=== PATIENT | female | born 1990 | race Caucasian/White ===

== ENCOUNTER 2017-07-27 16:33 | Day surgery (SDC) | payer OTHER ==
[2017-07-27 17:33] VITALS: BMI 29.0
--- NOTE | 2017-07-27 17:49 | PDOC.LDHP ---
Labor and Delivery H&P HPI: 27 yo [id number] at 39 weeks 5 days here for contractions. Patient of Dr morton who checked her at last visit and was 2 cm. No ROM, no VB, no HAs reported. PATIENT HAS FULL H&P HANDWRITTEN IN CHART Review of systems: complete ROS completed and as per HPI Current gestational age (weeks): 39 (5 days) Due date: 07/29/17 Grav: 2 Para: 0 (SAB1 with no D&C) Abnormal US findings: No Current medications: pre-issac vitamins, other (topical icy-hot) Allergies/Adverse Reactions: Allergies Allergy/AdvReac Type Severity Reaction Status Date / Time adhesive Allergy Verified 07/27/17 17:19 Social history: none - Physical Exam Vital signs reviewed and normal: yes General: NAD Heart: RRR Lungs: CTAB Abdomen: gravid (EFW 6-7#) FHT: category 1 (some early decels) Hedley contractions every: very 2 minutes - Vaginal Exam cm dilated: 2 (BOWI) Effacement: 50% Station: -2 - Assessment Latent labor at term. Desires minimal intervention. Has scheduled induction with Quan, but prefers to enter labor spontaneously. Declines pain meds at this time. GBS neg - Plan Plan: observation in L&D (Recheck CX in 2 hours. I have seem and examined the patient Ambulate, as desired)
--- NOTE | 2017-07-27 20:03 | PDOC.EVN ---
Event Note - Event Note Event Note: Follow up: Patient is now back from walking. She is unchanged by Ciara exam with me in room. Cx 2cm, KARLY. BP ok. Accels on strip at 1402. I have reassured her on latent labor. She will stay with relatives near hospital overnight. Keep follow up as scheduled.
== END 2017-07-27 20:10 | disposition home or self-care (01) ==
LOC: L&D/OP 16:33
PROVIDERS: ATTEND Obstetrics & Gynecology
DX: O47.1 False labor at or after 37 completed weeks of gestation (principal); Z79.899 Other long term (current) drug therapy; Z91.048 Other nonmedicinal substance allergy status; Z3A.39 39 weeks gestation of pregnancy
CPT/HCPCS: 99283

== ENCOUNTER 2017-07-30 01:24 | Day surgery (SDC) | payer OTHER ==
[2017-07-30 01:55] VITALS: BMI 29.0
[2017-07-30] MEDS ORDERED: Promethazine HCl 25 MG/ML VIAL IM PRN (02:48)
[2017-07-30] MEDS ORDERED: Morphine 10 MG/ML VIAL IM SCH (03:00)
--- NOTE | 2017-07-30 04:49 | PRG ---
DATE OF SERVICE: 07/30/2017 OB ER ENCOUNTER PRIMARY CARAMEL CUTTER HELPER: Anthony Glass M.D. CHIEF COMPLAINT: Abdominal pains. HISTORY OF PRESENT ILLNESS: The patient is a 27-year-old female with an intrauterine at 40 weeks and a day, who is presenting to Labor and Delivery with onset of contractions at 7:00. The patient reports her contractions have been fairly frequently and have been painful since then she was last checked about 3 days ago and was 250, -3 station. She reports she has had some bloody show . Denies any leakage of fluid, any urinary problems, any falls. She does have some baseline shortne ss of breath with this , had some nausea with vomiting earlier, though she attributes to the pain. Denies any new rashes. Denies any diarrhea. Reports some constipation. Denies headache. PAST MEDICAL HISTORY: Negative. PAST SURGICAL HISTORY: Negative. OBSTETRIC HISTORY: She has had 1 first trimester loss. ALLERGIES: No known drug allergies. MEDICATIONS: vitamins. SOCIAL HISTORY: Denies drug, alcohol, or tobacco use. OB LABS: Not available at time of dictation. REVIEW OF SYSTEMS: Per HPI. PHYSICAL EXAMINATION: VITAL SIGNS: Blood pressure 123/71, heart rate of 110, respiratory rate of 18, satting 98% on room a ir, temperature 98.3. GENERAL: She appears to be in some distress and anxious. She is alert and oriented, cooperative and pleasant to interact with. HEENT: Head is normocephalic, atraumatic. LUNGS: Clear to auscultation bilaterally. HEART: Regular rate and rhythm. ABDOMEN: Gravid. She has appropriate tenderness with contractions. EXTREMITIES: Nontender and are symmetrically edematous. Again, appropriate for . CERVICAL EXAM: She is 2.5 cm dilated, 50% effaced, -2 station. heart tracing performed for threatened labor and abdominal pain. Baseline is noted to be in th e 140s with moderate long-term variability, positive accelerations, no decelerations. She is having contractions about every 2-3 minutes. ASSESSMENT AND PLAN: The patient is a 27-year-old female with an intrauterine at 40 weeks in latent labor. The patient has a category 1 tracing. She was given 8 mg of morphine IM and 25 mg of Phenergan IM, which has made her much more comfortable. She is relaxed and feels like she can res t now comfortably. The patient is going to be staying overnight here locally with family member hari lucy 15 minutes from the hospital and desires to be discharged home, given the baby's category 1 tracing and her essentially no change from 3 days ago, this is a reasonable option for her. The patient has been given term labor precautions and has been counseled to follow up with her primary OB as schedul ed.
== END 2017-07-30 03:45 | disposition home or self-care (01) ==
LOC: L&D/OP 01:24
PROVIDERS: ATTEND Obstetrics & Gynecology
DX: O47.1 False labor at or after 37 completed weeks of gestation (principal); Z91.048 Other nonmedicinal substance allergy status; Z3A.40 40 weeks gestation of pregnancy; Z79.899 Other long term (current) drug therapy; Z87.59 Personal history of other complications of pregnancy, childbirth and the puerperium
CPT/HCPCS: 96372; 99282; J2270; J2550

== ENCOUNTER 2017-07-30 12:26 | Inpatient (IN) | payer OTHER ==
[~2017-07-30 12:26] MED LIST: Ketorolac Tromethamine 30 MG/ML VIAL ONE; PHENYLEPHRINE-NS 100 MCG/ML 10 ML SYRINGE ONE
[2017-07-30] MEDS: Lactated Ringer's 1,000 ML IV SCH ×2 (13:10→15:22)
[2017-07-30] MEDS ORDERED: Promethazine HCl 25 MG/ML VIAL IM PRN ×4 (13:26→22:21)
[2017-07-30] MEDS ORDERED: Diphenoxylate HCl/Atropine Tablet PO PRN (13:26)
[2017-07-30] MEDS ORDERED: Ondansetron HCl/PF 4 MG/2 ML Vial IVP PRN ×5 (13:26→22:21)
[2017-07-30] MEDS ORDERED: HYDROcodone/Acetaminophen 5/325 mg Tablet PO PRN ×3 (13:26→22:21)
[2017-07-30] MEDS ORDERED: NS w/ Oxytocin 10 units 500 ML IV SCH (13:26)
[2017-07-30] MEDS ORDERED: NS / Oxytocin 40 units/1000ml 1,000 ML IV PRN (13:26)
[2017-07-30] MEDS ORDERED: Lactated Ringer's 1,000 ML IV SCH (13:26)
[2017-07-30] MEDS ORDERED: Lidocaine 1% (PF) 30 ML VIAL SC PRN (13:26)
[2017-07-30] MEDS ORDERED: Ibuprofen 800 MG TAB PO PRN (13:26)
[2017-07-30] MEDS ORDERED: Carboprost 250 MCG/ML AMP IM PRN (13:26)
[2017-07-30 13:39] LABS: Hemoglobin 13.4 g/dL (12.0-16.0); Mean Corpuscular HGB CONC 33.5 g/dL (32.0-36.0); Mean Corpuscular Hemoglobin 29.9 pg (27.0-31.0); Mean Corpuscular Volume 89.2 fl (81.0-99.0); Mean Platelet Volume 7.9 fL (7.4-10.4); Platelet Count 254 thou/uL (130-400); RBC Distribution Width 12.9 % (11.5-14.5); Red Blood Cell (RBC) Count 4.47 mill/uL (4.20-5.40); White Blood Cell (WBC) Count 19.4 thou/uL (4.8-10.8)
[2017-07-30 14:17] LABS: HBSAg Index 0.15 S/CO (0-0.99); Hep B Surf Ag Non-Reactive S/CO (NonReactive); Syphilis Antibody Nonreactive (Nonreactive); Syphilis Antibody Index 0.04 S/CO (<1.00 Non-Reactive)
[2017-07-30 14:18] VITALS: BMI 29.0
[2017-07-30] MEDS ORDERED: Bupivacaine 0.5% 20 ML, fentaNYL Citrate/PF 400 MCG in Sodium Chloride 0.9% 72 ML EPIDURAL SCH (14:30)
[2017-07-30] MEDS ORDERED: DISCONTINUE ALL PREVIOUS NARCOTICS FS SCH (14:30)
[2017-07-30] MEDS ORDERED: Acetaminophen 325 MG TAB PO PRN (15:13)
[2017-07-30] MEDS ORDERED: Lactated Ringer's 500 ML IV PRN (15:13)
[2017-07-30] MEDS ORDERED: diphenhydrAMINE 50 MG/ML VIAL IVP PRN ×2 (15:13→21:43)
[2017-07-30] MEDS ORDERED: Eucerin (Mineral Oil/Petrolatum,White) 30 gm Jar TOP PRN ×2 (15:13→21:43)
[2017-07-30] MEDS ORDERED: Naloxone HCl 0.4 mg/ml Vial IVP PRN ×4 (15:13→21:43)
[2017-07-30] MEDS ORDERED: ePHEDrine/0.9% NaCl/PF SYRINGE 50 mg/10 ml SLOW IVP PRN (15:13)
[2017-07-30] MEDS ORDERED: Fentanyl 4mcg/Marcaine 0.1% Cassette 100 ML EPIDURAL SCH (15:15)
[2017-07-30] MEDS ORDERED: Communication Order-Pharmacy FS SCH ×2 (15:15→21:45)
[2017-07-30] MEDS ORDERED: cefTRIAXone\\ROCEPHIN 500 MG in Sodium Chloride 0.9% 100 ML IVPB STA (15:37)
[2017-07-30] MEDS ORDERED: Clindamycin/D5W 900 MG in Premix Bag 1 BAG IVPB STA (15:38)
--- NOTE | 2017-07-30 16:12 | HP ---
DATE OF ADMISSION: 07/30/2017 REASON FOR ADMISSION: Active labor at term. HISTORY OF PRESENT ILLNESS: Ms. Livingston is a 27-year-old primigravida with an EDC of 07/29/2017, who sees me at [facility]. She is group B strep negative. LABORATORY AND X-RAY FINDINGS: A positive, antibody negative, Pap negative, rubella immune, VDRL non reactive. Hepatitis B, GC, and chlamydia negative. Urine culture in . The patient has had a uncomplicated and was scheduled for a 41+ week induction of labor secondary to her reque st for delay. She presents complaining of 24 hours of contraction. She was seen in Labor and Delive ry yesterday and was noted to have no cervical change at 2-3 cm. Today, she is noted to be 5, 90 and 0 upon admission. OB AND CLOTHES DRIER ASSEMBLER HISTORY: As noted. PAST MEDICAL HISTORY: Anxiety. PAST SURGICAL HISTORY: None. ALLERGIES: Denies. MEDICATIONS: vitamins. SOCIAL HISTORY: Denies alcohol or IV drug abuse. No tobacco use in . REVIEW OF SYSTEMS: Noncontributory. PHYSICAL EXAMINATION: VITAL SIGNS: Pulse 110, respirations 18, blood pressure 118/72, temperature 98.7. HEENT: Within normal limits. LUNGS: Clear to auscultation bilaterally. HEART: Regular rhythm. ABDOMEN: Soft, nontender. Estimated weight 8 pounds. PELVIC: Vulva without lesions. Vagina discharge. Cervix 5, 90, and 0. Bulging bag of water AROM p erformed with clear foul smelling fluid noted. EXTREMITIES: Without clubbing, cyanosis or edema. heart rate tracing revealed a category 1 tr acing, positive accelerations, no spontaneous decelerations, contractions approximately every 3 minut es. LABORATORY STUDIES: White count is 19.4, hematocrit is 39.9. Syphilis and hepatitis B are negative. IMPRESSION: Active labor at term with chorioamnionitis. Diagnosis made secondary to a foul smelling amniotic fluid and elevated white count. PLAN: We will start the patient on Rocephin and clindamycin. Pitocin augmentation if necessary. Th e patient has already received a labor epidural. We will have at delivery.
[2017-07-30] MEDS ORDERED: Sodium Chloride 0.9% 1,000 ML IV SCH (16:45)
[2017-07-30] MEDS ORDERED: Acetaminophen 1,000 MG in Premix Bag 1 BAG IVPB STA (18:50)
[2017-07-30] MEDS ORDERED: Bicitra 30 ML UDCUP PO SCH (20:30)
[2017-07-30] MEDS ORDERED: CEFAZOLIN/Water 2 GM/20 ML SYRINGE SLOW IVP SCH (20:30)
[2017-07-30] MEDS ORDERED: Lidocaine 2% 10 ML INJ ONE (20:49)
[2017-07-30] MEDS ORDERED: Oxytocin 10 UNITS/ML VIAL ONE (20:53)
[2017-07-30] MEDS ORDERED: Ketorolac Tromethamine 30 MG/ML VIAL ONE (20:53)
[2017-07-30] MEDS ORDERED: Azithromycin 1,000 MG in Sodium Chloride 0.9% 500 ML IVPB SCH (21:00)
[2017-07-30] MEDS ORDERED: Morphine PF 1 MG/ML SYR ONE (21:06)
[2017-07-30] MEDS ORDERED: PHENYLEPHRINE-NS 100 MCG/ML 10 ML SYRINGE ONE (21:22)
[2017-07-30] MEDS ORDERED: Midazolam HCl 2 mg/2 ml Vial ONE (21:28)
[2017-07-30] MEDS: NS / Oxytocin 40 units/1000ml 1,000 ML IV SCH ×2 (21:36→22:00)
[2017-07-30] MEDS ORDERED: Promethazine HCl 25 MG SUPP PR PRN (21:43)
[2017-07-30] MEDS ORDERED: Naloxone HCl 0.4 mg/ml Vial IV PRN (21:43)
[2017-07-30] MEDS ORDERED: HYDROmorphone 2 MG/ML VIAL SLOW IVP PRN (21:43)
[2017-07-30] MEDS ORDERED: Meperidine HCl/PF 25 MG/ML VIAL SLOW IVP PRN (21:43)
[2017-07-30] MEDS ORDERED: Ketorolac Tromethamine 30 MG/ML VIAL IVP PRN (21:43)
[2017-07-30] MEDS ORDERED: Ketorolac Tromethamine 30 MG/ML VIAL IVP SCH (21:45)
[2017-07-30] MEDS ORDERED: Meperidine HCl/PF 25 MG/ML VIAL ONE (22:00)
[2017-07-30] MEDS ORDERED: Adacel (T-DAP) 0.5 ML VIAL IM ONE (22:21)
[2017-07-30] MEDS ORDERED: diphenhydrAMINE 25 MG CAP PO PRN (22:21)
[2017-07-30] MEDS ORDERED: Zolpidem Tartrate 5 MG TAB PO PRN (22:21)
[2017-07-30] MEDS ORDERED: Acetaminophen 1,000 MG in Premix Bag 1 BAG IVPB PRN (22:21)
[2017-07-30] MEDS ORDERED: Meperidine HCl/PF 25 MG/ML VIAL IM PRN (22:21)
--- NOTE | 2017-07-30 22:44 | PRG ---
DATE OF SERVICE: 07/30/2017 TIME OF SERVICE: 2020 hours. SUBJECTIVE: Ms. Livingston has had slow progress of labor. IUPC was placed approximately 2 hours ago. She developed a maternal fever to go with the other signs and symptoms of chorioamnionitis. he art rate tracing has had a slow elevation to baseline at 160s to 170s, decreased variability and onse t of late decelerations at times. MUVs are adequate. Checking the patient's cervix now, it is essen tially 5.5 to 6 cm with little if any change from initial presentation. Considering the chorioamnion itis, heart rate tracing, and failure to progress in labor; decision has been made to go ahead and proceed with primary section. We will administer appropriate DVT prophylaxis, antibioti c prophylaxis with both Ancef and Zithromax, and we will continue Rocephin and clindamycin postoperat ively.
--- NOTE | 2017-07-30 23:38 | OP ---
DATE OF OPERATION: 07/30/2017 PREOPERATIVE DIAGNOSES: Failure to progress, chorioamnionitis, and category 3 heart rate tracing. POSTOPERATIVE DIAGNOSES: Failure to progress, chorioamnionitis, category 3 heart rate tracing, and macrosomia. PROCEDURE: Primary low transverse section without extension. SURGEON: Anthony Glass M.D. NATIONAL GUARD MEMBER: Cheryle Flores M.D., PGY-2 ANESTHESIA: Epidural, Mina Verma M.D. MEDICATIONS: Two grams of Ancef and 1 gram of Zithromax, preincision. DVT PROPHYLAXIS: SCDs. DRAINS: Shore to gravity. ESTIMATED BLOOD LOSS: 650 mL. OPERATIVE FINDINGS: 1. Male , occiput posterior presentation, Apgars 1//8 - pH of 7.17, CO2 of 64.8, to nursery with team in attendance at delivery. 2. Foul smelling amniotic fluid with cultures done on side and placenta sent for pathology. 3. Hemostasis, clear urine, counts correct. Normal appearing uterus, tubes, and ovaries at the end of the procedure, DISPOSITION: To the recovery room in good condition. DESCRIPTION OF OPERATIVE PROCEDURE: The patient's epidural was dosed up to an appropriate level and she was taken to the operating room. She received appropriate antibiotics and was prepped and draped in usual manner. Pfannenstiel skin incision was made with FHTs are 155 preincision, carried down the fascia in the midline incised sharply superiorly and laterally with curved Gutierrez scissors. Rectus dissected off sharply superiorly and inferiorly, divided in midline, peritoneum entered bluntly, taking care to avoid trauma to underlying viscera. The Ralf O retractor placed inside. Vesicouterine peritoneal fold identified and low transverse hysterotomy incision made. It was extended with finger fractionization and the 's head was elevated to the hysterotomy with copious foul-smelling fluid noted. was delivered. Cord clamped and cut and handed off to team in attendance. Cord gas was obtained. Cord blood sample was obtained. Placenta removed manually. Uterus noted to be without extension on the hysterotomy and achieved good tone. Hysterotomy was closed with #1 Monocryl suture x2 layers in a running locking manner. Good reapproximation was noted. Gutters were irrigated out bilaterally and reinspection of the hysterotomy revealed it to be dry. Ralf O retractor was removed. Counts were correct. Rectus was inspected and fascia reapproximated using 0 PDS suture. Subcutaneous tissue irrigated and rendered hemostatic with Bovie cautery and reapproximated using a 2-0 plain gut. Skin reapproximated using a 4-0 Monocryl and Dermabond. The patient taken to recovery room in good condition. KEISHA
[2017-07-31] MEDS: Clindamycin/D5W 900 MG in Premix Bag 1 BAG IVPB SCH ×4 (00:38→23:33)
[2017-07-31] MEDS ORDERED: diphenhydrAMINE 50 MG/ML VIAL IVP PRN (01:56)
[2017-07-31] MEDS ORDERED: Naloxone HCl 0.4 mg/ml Vial IV PRN ×3 (01:56)
[2017-07-31] MEDS ORDERED: NO PO,IM,IV OR SC NARCOTICS FOR 12HR EXCEPT BY ANESTHESIA PO SCH (01:56)
[2017-07-31] MEDS ORDERED: Promethazine HCl 25 MG/ML VIAL IM PRN (01:56)
[2017-07-31] MEDS ORDERED: Ondansetron HCl/PF 4 MG/2 ML Vial IVP PRN (01:56)
[2017-07-31] MEDS ORDERED: Promethazine HCl 25 MG SUPP PR PRN (01:56)
[2017-07-31] MEDS ORDERED: Hydrocerin (Eucerin) Cream 120 gm Jar TOP PRN (01:56)
[2017-07-31] MEDS ORDERED: Ketorolac Tromethamine 30 MG/ML VIAL IVP PRN (01:56)
[2017-07-31] MEDS: cefTRIAXone\\ROCEPHIN 500 MG in Sodium Chloride 0.9% 100 ML IVPB SCH ×4 (02:05→23:33)
[2017-07-31] MEDS: NS / Oxytocin 40 units/1000ml 1,000 ML IV SCH (04:08)
[2017-07-31 06:21] LABS: Hemoglobin 10.9 g/dL (12.0-16.0); Mean Corpuscular HGB CONC 33.4 g/dL (32.0-36.0); Mean Corpuscular Hemoglobin 30.2 pg (27.0-31.0); Mean Corpuscular Volume 90.5 fl (81.0-99.0); Mean Platelet Volume 7.6 fL (7.4-10.4); Platelet Count 235 thou/uL (130-400); Red Blood Cell (RBC) Count 3.59 mill/uL (4.20-5.40); White Blood Cell (WBC) Count 23.9 thou/uL (4.8-10.8)
--- NOTE | 2017-07-31 07:11 | PDOC.PP ---
Post Progress Note Post Day #: 1 PO intake tolerated: yes Flatus: no Ambulation: no Vital Signs (12 hours) Temp Pulse Resp BP Pulse Ox 07/31/17 06:45 18 07/31/17 04:00 99.1 F 121 H 20 130/75 07/31/17 02:50 99.2 F 120 H 20 116/68 07/31/17 01:50 98.1 F 116 H 18 117/75 07/31/17 01:45 100.6 F H 119 H 18 98 07/31/17 00:50 100.6 F H 119 H 18 131/78 98 07/30/17 20:00 100.8 F H 126 H 18 Weight Weight 180 lb - Physical Examination General: NAD Cardiovascular: no m/r/g, RRR Respiratory: clear to auscultation bilaterally Abdominal: + bowel sounds, lochia, no distention, appropriately TTP Extremities: negative homans (B) Skin: CS incision dry & intact Neurological: no gross focal deficits Psychiatric: A&Ox3, normal affect Result Diagrams: 07/31/17 05:05 Additional Labs: Post Labs Blood Type A POSITIVE 07/30/17 13:10 Hep Bs Antigen Non-Reactive S/CO (NonReactive) 07/30/17 13:10 (1) Chorioamnionitis in third trimester Code(s): O41.1230 - CHORIOAMNIONITIS, THIRD TRIMESTER, NOT APPLICABLE OR UNSP Status: Acute - Assessment/Plan patient doing well. will continue abx for one more day if remains afebrile. baby in sick nursery on 30% o2 and iv abx. placenta culture pending .
[2017-07-31] MEDS: Prenatal Vitamin 1 TAB PO SCH (09:05)
[2017-07-31] MEDS: Docusate Calcium (SURFAK) 240 MG CAP PO SCH ×2 (09:05→19:45)
[2017-07-31] MEDS ORDERED: HYDROcodone/Acetaminophen 5/325 mg Tablet PO PRN ×3 (10:32→13:47)
[2017-07-31] MEDS ORDERED: Meperidine HCl/PF 25 MG/ML VIAL IM PRN (13:47)
[2017-07-31] MEDS: Simethicone Chewable 80 MG TAB PO PRN ×2 (15:00→23:44)
[2017-07-31] MEDS: HYDROcodone/Acetaminophen 5/325 mg Tablet PO PRN ×3 (15:00→23:44)
[2017-08-01] MEDS: HYDROcodone/Acetaminophen 5/325 mg Tablet PO PRN ×3 (05:45→20:59)
--- NOTE | 2017-08-01 07:31 | PDOC.PP ---
Post Progress Note Post Day #: 2 PO intake tolerated: yes Flatus: yes Ambulation: yes Vital Signs (12 hours) Temp Pulse Resp BP 08/01/17 05:00 98.3 F 97 18 118/65 08/01/17 04:00 98.1 F 90 18 08/01/17 00:00 98.1 F 90 18 07/31/17 20:10 98.3 F 98 18 129/65 07/31/17 20:00 98.1 F 107 H 18 Weight Weight 180 lb - Physical Examination General: NAD Cardiovascular: no m/r/g, RRR Respiratory: clear to auscultation bilaterally, non-labored breathing Abdominal: + bowel sounds, lochia, no distention, appropriately TTP Extremities: negative homans (B) Skin: CS incision dry & intact, no rash Neurological: no gross focal deficits Psychiatric: A&Ox3, normal affect Result Diagrams: 07/31/17 05:05 Additional Labs: Post Labs Blood Type A POSITIVE 07/30/17 13:10 Hep Bs Antigen Non-Reactive S/CO (NonReactive) 07/30/17 13:10 (1) Chorioamnionitis in third trimester Code(s): O41.1230 - CHORIOAMNIONITIS, THIRD TRIMESTER, NOT APPLICABLE OR UNSP Status: Acute Qualifiers: Fetus number: single or unspecified fetus Qualified Code(s): O41.1230 - Chorioamnionitis, third trimester, not applicable or unspecified - Assessment/Plan doing well. dc abx. culture grm neg rods notified nicu
[2017-08-01] MEDS: Simethicone Chewable 80 MG TAB PO PRN (10:19)
[2017-08-01] MEDS: Prenatal Vitamin 1 TAB PO SCH (10:19)
[2017-08-01] MEDS: Docusate Calcium (SURFAK) 240 MG CAP PO SCH ×2 (10:19→21:00)
[2017-08-02] MEDS: HYDROcodone/Acetaminophen 5/325 mg Tablet PO PRN ×2 (04:08→09:03)
--- NOTE | 2017-08-02 08:27 | PDOC.PP ---
Post Progress Note Post Day #: 3 PO intake tolerated: yes Flatus: yes Ambulation: yes Vital Signs (12 hours) Temp Pulse Resp BP 08/02/17 04:14 98.8 F 105 H 18 134/83 08/02/17 04:00 98.3 F 102 H 18 08/02/17 00:00 98.3 F 102 H 18 Weight Weight 180 lb - Physical Examination General: NAD Cardiovascular: no m/r/g, RRR Respiratory: clear to auscultation bilaterally, non-labored breathing Abdominal: + bowel sounds, lochia, no distention, appropriately TTP Extremities: negative homans (B) Skin: CS incision dry & intact ( sl lilli rom adhesive) Neurological: no gross focal deficits Psychiatric: A&Ox3, normal affect (pt desires dc home. robin dc at noon. er precautions) Result Diagrams: 07/31/17 05:05 Additional Labs: Post Labs Blood Type A POSITIVE 07/30/17 13:10 Hep Bs Antigen Non-Reactive S/CO (NonReactive) 07/30/17 13:10 (1) Chorioamnionitis in third trimester Code(s): O41.1230 - CHORIOAMNIONITIS, THIRD TRIMESTER, NOT APPLICABLE OR UNSP Status: Acute Qualifiers: Fetus number: single or unspecified fetus Qualified Code(s): O41.1230 - Chorioamnionitis, third trimester, not applicable or unspecified
[2017-08-02 08:37] VITALS: BP 123/84; TEMP 98.2
[2017-08-02] MEDS: Docusate Calcium (SURFAK) 240 MG CAP PO SCH (09:03)
[2017-08-02] MEDS: Prenatal Vitamin 1 TAB PO SCH (09:03)
[2017-08-02] MEDS: Simethicone Chewable 80 MG TAB PO PRN (09:03)
== END 2017-08-02 12:30 | disposition home or self-care (01) | DRG 766 ==
LOC: L&D/OP 12:26 → L&D 13:14 → 3SW 07-31 00:49
PROVIDERS: ADMIT Obstetrics & Gynecology; ATTEND Obstetrics & Gynecology
PROC: 10D00Z1 Extraction of Products of Conception, Low, Open Approach (ICD-10-PCS; principal; 2017-07-31)
DX: O41.1230 Chorioamnionitis, third trimester, not applicable or unspecified (principal); O36.63X0 Maternal care for excessive fetal growth, third trimester, not applicable or unspecified; O76 Abnormality in fetal heart rate and rhythm complicating labor and delivery; O62.0 Primary inadequate contractions; Z3A.41 41 weeks gestation of pregnancy; Z37.0 Single live birth
CPT/HCPCS: 36415; 51702; 85027; 86780; 86850; 86900; 86901; 87070; 87205; 87340; 88307; 96372; 99282; 99285; J0131; J0456; J0595; J0696; J1885; J2175; J2250; J2270; J2274; J2550; J2590; J3010; J3490; J7050